=== PATIENT | female | born 1995 | race Caucasian/White ===

== ENCOUNTER 2021-03-18 12:03 | Emergency (ER) | payer OTHER, BC ==
[~2021-03-18] VITALS: Ht 167.6 cm; Wt 59.0 kg
== END 2021-03-18 13:11 | disposition home or self-care (01) ==
LOC: ER 12:03
DX: S61.211A Laceration without foreign body of left index finger without damage to nail, initial encounter (principal); Z91.040 Latex allergy status; W26.0XXA Contact with knife, initial encounter; Y92.89 Other specified places as the place of occurrence of the external cause; Y99.0 Civilian activity done for income or pay
CPT/HCPCS: 12001; 99282-25